=== PATIENT | male | born 1975 | race Hispanic/Latino ===

== ENCOUNTER 2019-08-18 20:10 | Emergency (ER) | payer BC, SELFPAY ==
--- NOTE | ~2019-08-18 | CT_ITS ---
EXAMINATION: CT abdomen pelvis w con EXAM DATE: 08/18/2019 21:09 INDICATION: Fever, right lower quadrant pain. TECHNIQUE: Spiral CT of the abdomen and pelvis was performed following intravenous injection of 100 m L Omnipaque 350. Axial, coronal and sagittal images were reviewed. The dose-length product (DLP) fo r this examination was 924.23 mGy-cm. The exposure was tailored according to patient size (auto mA e xposure control), and iterative reconstruction (ASIR) was used as additional dose reduction technique . There is no prior study for comparison. FINDINGS: There are scattered peripheral predominant bibasilar ill-defined groundglass opacities, characteristic appearance for atypical/viral infection associated acute lung injury (could be COVID-1 9 given current increased prevalence. Less likely possibilities include viral pneumonia from other et iology, cryptogenic organizing pneumonia, desquamative interstitial pneumonia, nonspecific interstiti al pneumonia. The liver, spleen, adrenal glands and pancreas are unremarkable. Gallbladder is unremarkable. No bi liary obstruction. Portal and splenic veins are patent. Kidneys enhance symmetrically. There is no hydronephrosis. The prostate is unremarkable. The bladder is unremarkable. There is no retroperi toneal or pelvic lymphadenopathy. The appendix is normal. The stomach and small bowel are unremarkable. There is expected amount of c olonic stool. No free intraperitoneal gas. The heart is normal in size. There are no pericardial or pleural effusions. The bones are unremarkable. IMPRESSION: 1. Bibasilar opacities characteristic in appearance for COVID-19. Differential diagnosis above. 2. No acute intra-abdominal findings. Reviewed, dictated and finalized at location G.
--- NOTE | ~2019-08-18 | XR_ITS ---
EXAMINATION: XR chest 1V portable EXAM DATE: 08/18/2019 21:14 INDICATION: Fever, chest pain. TECHNIQUE: Portable AP frontal chest x-ray was obtained. There is no prior study for comparison. Co rrelation was made with CT abdomen pelvis same date. FINDINGS: Subtle ill-defined left mid lung zone airspace disease. On CT scan obtained at same time, b ilateral groundglass opacities with characteristic appearance for COVID 19 were identified. These are mostly in the apparent at this time on chest x-ray but follow-up exam is indicated. No pneumothorax or pleural effusion. Cardiomediastinal silhouette is normal. There are no osseous abn ormalities identified. IMPRESSION: Small amount of ill-defined left midlung zone airspace disease suspicious for COVID-19. Reviewed, dictated and finalized at location G. IMPRESSION: Small amount of ill-defined left midlung zone airspace disease susp icious for COVID-19.
[2019-08-18 20:14] VITALS: BP 117/83; PULSE 100; RESP 23; TEMP 37.4; O2SAT 100
[2019-08-18 20:20] VITALS: PULSE 78; O2SAT 98
--- NOTE | 2019-08-18 20:20 | ECG_ITS ---
Measurements Intervals [place] Rate: 98 P: 40 SD: 162 QRS: 85 QRSD: 99 T: 15 QT: 343 QTc: 440 Interpretive Statements SINUS RHYTHM BASELINE ARTIFACT- I, III NORMAL ECG Electronically Signed On 08-19-2019 6:58:42 CDT by Tuan Gil D.O.
[2019-08-18 20:36] LABS: Basophils Percent Auto 0.1 % (0.2-1.2); Eosinophils Percent Auto 0.1 % (0-4.4); Hemoglobin 14.3 g/dL (14.0-18.0); Immature Granulocyte Absolute 0.04 K/mm3 (0.00-0.031); Immature Granulocyte Percent A 0.6 % (0-0.5); Lymphocytes Absolute Auto 1.44 K/mm3 (0.9-3.2); Mean Corpuscular HGB Conc 35.8 g/dl (32-36); Mean Corpuscular Volume 92.4 fl (80-100); Monocytes Absolute Auto 0.8 K/mm3 (0.1-0.6); Monocytes Percent Auto 11.1 % (2.6-8.5); Neutrophils Absolute Auto 4.9 K/mm3 (1.3-6.7); Neutrophils Percent Auto 68.1 % (45.5-73.1); Platelet Count Result 213 k/mm3 (150-375); Red Blood Count 4.33 M/mm3 (4.6-6.20); Red Cell Distribution Width 11.8 % (11.5-14.5); White Blood Count 7.2 K/mm3 (4.5-10.0)
[2019-08-18 20:45] LABS: Prothrombin Time 13.3 Seconds (11.1-14.7)
[2019-08-18 20:46] LABS: Partial Thromboplastin Time 32.4 SECONDS (22.3-36.8)
[2019-08-18 20:47] LABS: Lipase 159 U/L (23-300)
[2019-08-18 20:48] LABS: Blood Urea Nitrogen 13 mg/dL (9-20); Calcium 8.5 mg/dL (8.4-10.2); Carbon Dioxide 24 mmol/L (22-30); Chloride 97 mmol/L (98-107); Estimated Glomerular Filt Rate > 60; Glucose 104 mg/dL (75-110); Potassium 3.7 mmol/L (3.4-5.0); Sodium 132 mmol/L (137-145)
--- NOTE | 2019-08-18 20:49 | ED.GENADULT ---
HPI - General Adult General Chief complaint: Shortness of Breath/Dyspnea Stated complaint: sob Time Seen by Provider: 08/18/19 20:43 History of Present Illness HPI narrative: Patient presents with his for severe abdominal pain. He got a call from [place] today that his father was on life support and that he needed to come down and see him so they could take him off the life support. Then he had chest pain and shortness of breath. That progressed to abdominal pain. He had no fever at home but his temperature was elevated here. His is his mobile equipment mechanic here. He says his pain is 10 out of 10. He just keeps rubbing his stomach. He has not had any abdominal surgery before. His primary language is [place]. Related Data Allergies Allergy/AdvReac Type Severity Reaction Status Date / Time No Known Allergies Allergy Verified 08/18/19 20:21 Review of Systems Review of Systems: Narrative: Per the he had shortness of breath chest pain and abdominal pain. Exam Narrative: Exam Narrative: GENERAL: Patient appears to be in most distress, continually rubbing his stomach, with his eyes closed. HEAD: Normocephalic, atraumatic. EYES: PERRLA and EOMI. ENT: Nares clear, no rhinorrhea or epistaxis. Mucous membranes moist. NECK: Supple. CHEST: Clear to auscultation. No respiratory distress. HEART: Regular rate and rhythm. No murmur heard. Normal peripheral pulses. ABDOMEN: Soft, nontender, nondistended, normal active bowel sounds. EXTREMITIES: Normal range of motion. No edema. SKIN: Warm, dry, no rash. NEURO: No focal deficits. Alert. . Course Reevaluation(s) Reevaluation #1: Informed the that the has COVID, and that we can do a couple more tests before we let him go. That they are both quarantine for 14 days, and that he cannot fly to [place] for his dad's sake. He is feeling much better with the pain medicine. Date: 08/18/19 Time: 22:09 Vital Signs Vital signs: Vital Signs Temperature 99.4 F 08/18/19 20:14 Pulse Rate 100 08/18/19 20:14 Respiratory Rate 23 H 08/18/19 20:14 Blood Pressure 117/83 08/18/19 20:14 Pulse Oximetry 100 08/18/19 20:14 Temperature 99.4 F 08/18/19 20:14 Pulse Rate 95 08/18/19 22:29 Respiratory Rate 15 08/18/19 22:29 Blood Pressure 123/85 08/18/19 22:29 Pulse Oximetry 96 08/18/19 22:29 Medical Decision Making Medical Records Medical records reviewed: Yes I reviewed the patient's medical records. Vital Signs Vital Signs: Vital Signs Temperature 99.4 F 08/18/19 20:14 Pulse Rate 100 08/18/19 20:14 Respiratory Rate 23 H 08/18/19 20:14 Blood Pressure 117/83 08/18/19 20:14 Pulse Oximetry 100 08/18/19 20:14 Temperature 99.4 F 08/18/19 20:14 Pulse Rate 95 08/18/19 22:29 Respiratory Rate 15 08/18/19 22:29 Blood Pressure 123/85 08/18/19 22:29 Pulse Oximetry 96 08/18/19 22:29 Lab Data Lab results reviewed: Yes I reviewed the patient's lab results. Result diagrams: 08/18/19 20:30 08/18/19 20:30 Labs: Lab Results 08/18/19 08/18/19 08/18/19 Range/Units 20:30 20:30 20:30 WBC 7.2 (4.5-10.0) K/mm3 RBC 4.33 L (4.6-6.20) M/mm3 Hgb 14.3 (14.0-18.0) g/dL Hct 40.0 L (42.0-52.0) % MCV 92.4 (80-100) fl MCH 33.0 (26-34) pg MCHC 35.8 (32-36) g/dl RDW 11.8 (11.5-14.5) % Plt Count 213 (150-375) k/mm3 MPV 10.0 (7.4-10.4) fl Immature Gran % (Auto) 0.6 H (0-0.5) % Neut % (Auto) 68.1 (45.5-73.1) % Lymph % (Auto) 20.0 (18.3-44.2) % [place] % (Auto) 11.1 H (2.6-8.5) % Eos % (Auto) 0.1 (0-4.4) % Baso % (Auto) 0.1 L (0.2-1.2) % Lymph # (Auto) 1.44 (0.9-3.2) K/mm3 [place] # (Auto) 0.8 H (0.1-0.6) K/mm3 Eos # (Auto) 0.0 (0-0.3) K/mm3 Baso # (Auto) 0.0 (0.0-0.1) K/mm3 Abs Immat Gran (auto) 0.04 H (0.00-0.031) K/mm3 Absolute Neuts (auto) 4.9 (1.3-6.7) K/mm3 Absolute Nucleated RBC 0.0 (0.0-0.012
[2019-08-18] MEDS: MORPHINE SULFATE 4 MG/ML INJ IV PUSH (20:54)
[2019-08-18] MEDS: ONDANSETRON INJ 4 MG/2 ML VIAL IV PUSH (20:55)
[2019-08-18] MEDS: SODIUM CHLORIDE 0.9% IV 1,000 ML 999 ML IV CONT (20:55)
[2019-08-18 21:00] LABS: Troponin I < 0.012 ng/mL (0.000-0.034)
[2019-08-18 21:31] VITALS: BP 151/84; PULSE 92; RESP 15; O2SAT 97
[2019-08-18 22:29] VITALS: BP 123/85; PULSE 95; RESP 15; O2SAT 96
[2019-08-18 23:49] LABS: Lactic Acid 0.7 mmol/L (0.7-2.1)
[2019-08-19] VITALS: BP 107/80; PULSE 78; RESP 15; O2SAT 100
[2019-08-19 15:57] LABS: SARS-CoV-2 RNA PCR Positive
== END 2019-08-19 | disposition home or self-care (01) ==
PROVIDERS: Emergency Provider Emergency Medicine
DX: U07.1 COVID-19 (principal)
CPT/HCPCS: 36415; 71045; 74177; 80048; 83605; 83690; 84484; 85025; 85610; 85730; 87040; 87635; 93005; 96361; 96374; 96375; 99284; C9803; J2270; J2405; J7030; Q9967; U0003

== ENCOUNTER 2020-05-20 22:40 | Emergency (ER) | payer BC, SELFPAY ==
--- NOTE | 2020-05-20 22:42 | ED.ALLEREA ---
HPI - Allergic Reaction General Chief complaint: Allergic Reaction Stated complaint: Allergic reaction Time Seen by Provider: 05/20/20 22:42 History of Present Illness HPI narrative: Diffuse pruritic rash for about the past hour. Present on face, neck, trunk, and all extremities. Spares palms. He had milder rash this morning that went away on its own. He also had a similar, but less severe rash about 2 weeks ago. No cause identified at that time. No exposures or new medications identified. He took 50 mg Benadryl prior to arrival tonight. No lip, tongue, or throat swelling. Related Data Allergies Allergy/AdvReac Type Severity Reaction Status Date / Time No Known Allergies Allergy Verified 05/20/20 22:48 Review of Systems Review of Systems: All systems reviewed & are unremarkable except as noted in HPI and below Constitutional: Constitutional: Denies chills, Denies fever(s) and Denies weakness Eyes: Eyes: Reports no additional eye complaints ENT: Denies dizziness and Denies sore throat Cardiovascular: Cardiovascular: Denies chest pain Respiratory: Respiratory: Reports no additional respiratory complaints Gastrointestinal: Gastrointestinal: Denies abdominal pain and Denies nausea Genitourinary: Genitourinary: Reports no additional male genitourinary complaints Neurologic: Denies weakness Allergic/Immunologic: Allergic/Immunologic: Denies lip swelling, Denies throat swelling and Denies tongue swelling PMFSH Past Medical History Medical History (Updated 05/20/20 @ 23:14 by Saad Tan MD) COVID-19 Social History Social History (Updated 05/20/20 @ 22:58 by Saad Tan MD) Substance use: never Exam Const: General: healthy appearing, no acute distress and alert Nutritional Appearance: well nourished Orientation/consciousness: patient oriented x3 HENMT: Head: normal to inspection General nose exam: Normal external nose present Mouth: Yes lip normal Throat: posterior oropharynx normal Eyes: Pupils: Equal, round and reactive pupils present Resp: Effort & Inspection: normal respiratory effort Auscultation: clear to auscultation bilaterally Cardio: Rate: regular rate Rhythm: regular rhythm Skin: Other: diffuse, mildly erythematous raised rash. No significant warmth or tenderness Neuro: General: patient oriented x3, moves all extremities, no focal motor deficits and CN's II-XI intact bilaterally Speech: normal speech Extrem: General: no edema Course Vital Signs Vital signs: Vital Signs Temperature 36.4 C 05/20/20 22:44 Pulse Rate 69 05/20/20 22:44 Respiratory Rate 18 05/20/20 22:44 Blood Pressure 133/96 H 05/20/20 22:44 Pulse Oximetry 100 05/20/20 22:44 Temperature 36.4 C 05/20/20 22:44 Pulse Rate 69 05/20/20 22:44 Respiratory Rate 18 05/20/20 22:44 Blood Pressure 133/96 H 05/20/20 22:44 Pulse Oximetry 100 05/20/20 22:44 MDM - Allergic Reaction MDM Narrative Medical decision making narrative: Rash does appear allergic. No cause identified. No respiratory difficulties. Improved after epi. I will send home with prescription for prednisone and instructions to monitor any potential exposures. Differential Diagnosis Differential diagnosis: Likely allergic reaction and urticaria Discharge Plan Discharge Clinical Impression: Urticaria Patient Disposition: Home, Self-Care Condition: Stable Instructions: Antibiotic Form, Urticaria (ED) Prescriptions: New prednisone 50 mg tablet 50 mg PO DAILY Qty: 5 RF: 0 Follow-up/Referrals: Murphy Luis MD [Primary Care Provider] -
[2020-05-20 22:44] VITALS: BP 133/96; PULSE 69; RESP 18; TEMP 36.4; O2SAT 100
[2020-05-20] MEDS: EPINEPHrine HCL INJ 1 MG/ML AMPUL 0.3 MG IM ×2 (23:00→23:27)
[2020-05-20] MEDS: FAMOTIDINE 20 MG TABLET PO (23:01)
[2020-05-20] MEDS: predniSONE 20 MG TABLET 60 MG PO (23:01)
[2020-05-20 23:44] VITALS: BP 131/75; PULSE 68; RESP 16; TEMP 36.4; O2SAT 99
== END 2020-05-20 23:45 | disposition home or self-care (01) ==
LOC: ANHED 23:28
PROVIDERS: Emergency Provider Emergency Medicine; PCP Emergency Medicine
DX: L50.9 Urticaria, unspecified (principal)
CPT/HCPCS: 96372; 99284; A9270; J0171; J7512